=== PATIENT | female | born 1965 | race Two or more races ===

== ENCOUNTER 2020-12-04 13:39 | Emergency (ER) | payer OTHER ==
[2020-12-04 13:48] VITALS: TEMP 99.2; BMI 33.7
[2020-12-04 15:47] LABS: BASO % 0.6 % (0-2.0); EOS % 1.3 % (0-4.5); HEMOGLOBIN 13.2 GM/dL (10.7-15.3); LYMPH % 32.3 % (8-40); MCH 25.3 pg (25.7-33.7); MCHC 32.2 g/dl (32.0-36.0); MEAN CELL VOLUME 78.5 fl (80-96); MONO % 9.9 % (3.8-10.2); NEUT % 55.9 % (42.8-82.8); PLATELET COUNT 378 10^3/uL (134-434); RBC 5.23 M/mm3 (3.60-5.2); RDW 14.6 % (11.6-15.6); WHITE BLOOD COUNT 13.4 K/mm3 (4.0-10.0)
[2020-12-04 15:49] LABS: URINE APPEARANCE CLEAR; URINE BILIRUBIN NEGATIVE (NEGATIVE); URINE COLOR YELLOW; URINE GLUCOSE (UA) NEGATIVE (NEGATIVE); URINE KETONE NEGATIVE (NEGATIVE); URINE LEUK ESTERASE NEGATIVE (NEGATIVE); URINE NITRITE NEGATIVE (NEGATIVE); URINE PROTEIN NEGATIVE (NEGATIVE); URINE UROBILINOGEN 0.2 mg/dL (0.2-1.0)
[2020-12-04 15:52] LABS: HCG,QUALITATIVE URINE Negative
[2020-12-04 16:06] LABS: CALCIUM 9.5 mg/dL (8.5-10.1)
[2020-12-04 16:07] LABS: ALBUMIN 4.1 g/dl (3.4-5.0); BLOOD UREA NITROGEN 16.3 mg/dL (7-18)
[2020-12-04 16:10] LABS: CREATININE 0.6 mg/dL (0.55-1.3)
[2020-12-04 16:11] LABS: BILIRUBIN,TOTAL 0.3 mg/dL (0.2-1)
[2020-12-04] MEDS ORDERED: KETOROLAC TROMETHAMINE 15 MG/ML VIAL IVPUSH ONE (18:57)
[2020-12-04] MEDS ORDERED: KETOROLAC TROMETHAMINE 15 MG/ML VIAL ONE (19:00)
[2020-12-04 19:20] VITALS: BP 121/76; PULSE 75
== END 2020-12-04 19:17 | disposition home or self-care (01) ==
LOC: JER 13:39
PROC: 3E0333Z Introduction of Anti-inflammatory into Peripheral Vein, Percutaneous Approach (ICD-10-PCS; principal; 2020-12-04)
DX: R10.31 Right lower quadrant pain (principal)
CPT/HCPCS: 36415; 74177-TC; 80053; 81003; 84703; 85025; 87086; 99285-25; Q9967

== ENCOUNTER 2022-02-05 14:40 | Emergency (ER) | payer OTHER ==
[2022-02-05 14:44] VITALS: BP 171/69; PULSE 91; RESP 18; TEMP 98.6; BMI 31.4
[2022-02-05] MEDS ORDERED: METOCLOPRAMIDE HCL 10 MG TABLET (FP) PO ONE ×2 (16:22→16:28)
[2022-02-05] MEDS ORDERED: ACETAMINOPHEN/CAFFEINE/BUTALBITAL 1 TAB PO ONE (16:22)
[2022-02-05] MEDS ORDERED: ACETAMINOPHEN/CAFFEINE/BUTALBITAL 1 TAB ONE (16:28)
== END 2022-02-05 18:28 | disposition home or self-care (01) ==
LOC: JER 14:40
DX: S06.0X0A Concussion without loss of consciousness, initial encounter (principal)
CPT/HCPCS: 70450-TC; 99284-25

== ENCOUNTER 2023-05-03 11:37 | Emergency (ER) | payer OTHER ==
[2023-05-03 11:40] VITALS: RESP 18; BMI 32.5
[2023-05-03] MEDS ORDERED: KETOROLAC TROMETHAMINE 30 MG/1 ML VIAL IM ONE (12:06)
[2023-05-03] MEDS ORDERED: KETOROLAC TROMETHAMINE 30 MG/1 ML VIAL ONE (12:11)
[2023-05-03 14:02] VITALS: BP 136/53; PULSE 76; TEMP 98.3
== END 2023-05-03 14:20 | disposition home or self-care (01) ==
LOC: JERFT 11:37
PROC: 3E0233Z Introduction of Anti-inflammatory into Muscle, Percutaneous Approach (ICD-10-PCS; principal; 2023-05-03)
DX: S96.911A Strain of unspecified muscle and tendon at ankle and foot level, right foot, initial encounter (principal); M25.571 Pain in right ankle and joints of right foot; X50.9XXA Other and unspecified overexertion or strenuous movements or postures, initial encounter
CPT/HCPCS: 73610-TC-RT-FY; 73630-TC-RT-FY; 99284-25

== ENCOUNTER 2024-03-27 10:51 | Emergency (ER) | payer OTHER ==
[2024-03-27 10:58] VITALS: BP 122/81; PULSE 75; RESP 18; TEMP 98.3; BMI 31.2
[2024-03-27] MEDS ORDERED: ACETAMINOPHEN INJECTION 100 ML ONE (11:41)
[2024-03-27] MEDS: ACETAMINOPHEN 1000 MG/100 ML BAG IVPB ONE (11:57)
[2024-03-27 12:00] LABS: EOS % 0.7 % (0-4.5); HEMATOCRIT 41.6 % (32.4-45.2); HEMOGLOBIN 13.3 GM/dL (10.7-15.3); LYMPH % 33.9 % (8-40); MCH 24.9 pg (25.7-33.7); MCHC 32.1 g/dl (32.0-36.0); MEAN CELL VOLUME 77.7 fl (80-96); MEAN PLT VOLUME 8.6 fl (7.5-11.1); MONO % 9.1 % (3.8-10.2); NEUT % 55.3 % (42.8-82.8); PLATELET COUNT 392 10^3/uL (134-434); RBC 5.34 M/mm3 (3.60-5.2); RDW 14.7 % (11.6-15.6); WHITE BLOOD COUNT 9.2 K/mm3 (4.0-10.0)
[2024-03-27 12:01] LABS: PH,URINE 6.5 (5.0-8.0); URINE APPEARANCE CLEAR; URINE BILIRUBIN NEGATIVE (NEGATIVE); URINE COLOR YELLOW; URINE GLUCOSE (UA) NEGATIVE (NEGATIVE); URINE KETONE NEGATIVE (NEGATIVE); URINE LEUK ESTERASE NEGATIVE (NEGATIVE); URINE NITRITE NEGATIVE (NEGATIVE); URINE PROTEIN NEGATIVE (NEGATIVE); URINE UROBILINOGEN 0.2 mg/dL (0.2-1.0)
[2024-03-27 12:17] LABS: POTASSIUM 4.6 mmol/L (3.5-5.1)
[2024-03-27 12:19] LABS: ALBUMIN 3.6 g/dl (3.4-5.0); BLOOD UREA NITROGEN 12.3 mg/dL (7-18); CALCIUM 9.1 mg/dL (8.5-10.1)
[2024-03-27 12:22] LABS: CREATININE 0.6 mg/dL (0.55-1.3)
[2024-03-27 12:25] LABS: BILIRUBIN,TOTAL 0.3 mg/dL (0.2-1); TOT PROT 7.6 g/dl (6.4-8.2)
[2024-03-27] MEDS ORDERED: KETOROLAC TROMETHAMINE 15 MG/ML VIAL ONE (16:42)
[2024-03-27] MEDS: KETOROLAC TROMETHAMINE 15 MG/ML VIAL IVPUSH ONE (16:50)
== END 2024-03-27 16:52 | disposition home or self-care (01) ==
LOC: JER 10:51
PROC: 3E033NZ Introduction of Analgesics, Hypnotics, Sedatives into Peripheral Vein, Percutaneous Approach (ICD-10-PCS; principal; 2024-03-27)
PROC: 3E0333Z Introduction of Anti-inflammatory into Peripheral Vein, Percutaneous Approach (ICD-10-PCS; 2024-03-27)
DX: R10.31 Right lower quadrant pain (principal)
CPT/HCPCS: 36415; 74177-TC; 76830-TC; 80053; 81003; 83690; 85025; 87086; 99285-25; J0131